=== PATIENT | female | born 1970 | race Caucasian/White ===

== ENCOUNTER → 2020-10-01 | Outpatient (CLI) | payer BC, OTHER ==
--- NOTE | 2020-10-01 12:05 | CT ---
EXAMINATION TYPE: CT sinus wo con DATE OF EXAM: 10/01/2020 COMPARISON: None HISTORY: Chronic sinusitis and headaches x2 weeks. CT DLP: [address] of the paranasal sinuses was performed in the axial and coronal planes. Bone and soft tissue settings are submitted. The paranasal sinuses demonstrate normal aeration and development. The paranasal sinuses are free of mucosal thickening or air fluid level. The osteal meatal units are patent bilaterally. The nasal septum is midline. No bony destructive changes are seen within the field of view. IMPRESSION: Normal unenhanced CT of the paranasal sinuses.
== END | disposition home or self-care (01) ==
LOC: RADCTMAIN 11:36
PROVIDERS: ATTEND Otolaryngology
DX: J32.9 Chronic sinusitis, unspecified (principal); R51.9 Headache, unspecified
CPT/HCPCS: 70486